=== PATIENT | female | born 1995 | race Caucasian/White ===

== ENCOUNTER 2021-03-28 10:25 | Emergency (ER) | payer OTHER ==
[2021-03-28 12:20] LABS: CORONAVIRUS 2019 SARS-COV-2 NEGATIVE (NEGATIVE); INFLUENZA A NAA NEGATIVE (NEGATIVE)
[2021-03-28 12:48] LABS: BILIRUBIN NEGATIVE (NEGATIVE); BLOOD NEGATIVE Ery/uL (NEGATIVE); CLARITY CLEAR (CLEAR); COLOR YELLOW (YELLOW); GLUCOSE (U) NORMAL (NORMAL); LEUKOCYTES 1+ Leu/uL (NEGATIVE); NITRITE NEGATIVE (NEGATIVE); PROTEIN 1+ mg/dL (NEGATIVE); SPECIFIC GRAVITY >=1.030 (1.001-1.030); UROBILINOGEN 0.2 mg/dL (0.2-1.0)
[2021-03-28 13:00] LABS: BACTERIA TRACE; MUCOUS MODERATE; SQUAMOUS EPITHELIAL CELLS 20-50
[2021-03-28 13:01] LABS: BASOPHIL 0.4 % (0-2); EOSINOPHIL 0.6 % (0-5); HCT 40.8 % (37.0-47.0); HGB 13.9 g/dl (12.5-16.0); LYMPHOCYTE 19.8 % (15-48); MCH 29.2 pg (25.0-31.0); MCHC 34.1 g/dL (32.0-36.0); MCV 85.7 fL (78.0-100.0); MONOCYTE 5.3 % (0-12); MPV 9.9 fL (6.0-9.5); NEUTROPHIL 73.7 % (41-80); NRBC 0; PLT 226 K/uL (150-400); RBC 4.76 M/uL (4.20-5.40); RDW 13.2 % (11.5-14.0); WBC 8.5 K/uL (4.0-10.5)
[2021-03-28 13:29] LABS: ALBUMIN 4.7 g/dL (3.4-5.0); BILIRUBIN - TOTAL 0.7 mg/dL (0.2-1.0); BUN/CREAT RATIO (CALC) 20.7 RATIO; CREATININE 0.58 mg/dL (0.51-0.95); GLOBULIN (CALCULATION) 3.7 g/dL; POTASSIUM 3.9 mmol/L (3.5-5.1); TOTAL PROTEIN 8.4 g/dL (6.4-8.2)
[2021-03-28] MEDS ORDERED: PRENATAL FORMU1 EACH PO (14:17)
== END 2021-03-28 14:28 | disposition home or self-care (01) ==
LOC: FER 10:25
PROVIDERS: Emergency Medicine; Physician Assistant
DX: Z32.01 Encounter for pregnancy test, result positive (principal); Z20.822 Contact with and (suspected) exposure to COVID-19
CPT/HCPCS: 36415; 80053; 81001; 83690; 84702; 85025; J2765; J7030; U0002